=== PATIENT | male | born 1975 ===

== ENCOUNTER 2019-01-09 19:00 | Emergency (ER) | payer OTHER ==
[~2019-01-09] VITALS: Ht 167.6 cm; Wt 72.6 kg
[2019-01-09 22:10] VITALS: BP 116/69; TEMP 98.4
== END 2019-01-09 22:10 | disposition home or self-care (01) ==
LOC: ED 19:00
DX: M25.511 Pain in right shoulder (principal); R22.2 Localized swelling, mass and lump, trunk
CPT/HCPCS: 99283